=== PATIENT | male | born 1965 | race Caucasian/White ===

== ENCOUNTER 2017-06-26 23:50 | Observation (INO) | payer OTHER ==
[2017-06-27] MEDS: KETOROLAC 30 MG/ML INJ. IV (00:07)
[2017-06-27] MEDS: ONDANSETRON PF 4 MG/2 ML VIAL. IV (00:09)
[2017-06-27] MEDS: IV NORMAL SALINE 1000ML BAG 1,000 ML IV ×3 (00:10→05:22)
[2017-06-27 00:39] LABS: ADD MAN DIFF? NO
[2017-06-27 00:44] LABS: BASO # 0.1 x10^3/uL (0.0-0.2); BASO % 1 % (0-3); EOS # 0.3 x10^3/uL (0.0-0.7); EOS % 3 % (0-3); HEMATOCRIT 48.7 % (39.0-53.0); LYMPH # 4.1 x10^3/uL (1.0-4.8); LYMPH % 38 % (24-48); MEAN CORPUSCULAR HEMOGLOBIN 32 pg (25-35); MEAN CORPUSCULAR HGB CONC 35 g/dL (31-37); MEAN CORPUSCULAR VOLUME 90 fL (79-100); MONO # 0.8 x10^3/uL (0.0-1.1); MONO % 7 % (0-9); NEUT # 5.6 x10^3uL (1.8-7.7); NEUT % 52 % (31-73); PLATELET COUNT 198 x10^3/uL (140-400); RED CELL DISTRIBUTION WIDTH 12.8 % (11.5-14.5); WHITE BLOOD COUNT 10.8 x10^3/uL (4.0-11.0)
[2017-06-27 00:54] LABS: ANION GAP 9 (6-14); BLOOD UREA NITROGEN 18 mg/dL (8-26); BUN/CREATININE RATIO 13 (6-20); CALCIUM 9.1 mg/dL (8.5-10.1); CARBON DIOXIDE 30 mmol/L (21-32); CHLORIDE 102 mmol/L (98-107); CREATININE 1.4 mg/dL (0.7-1.3); GFR 53.6; GLUCOSE 128 mg/dL (70-99); POTASSIUM 3.8 mmol/L (3.5-5.1); SODIUM 141 mmol/L (136-145)
[2017-06-27 01:00] LABS: ALBUMIN 4.4 g/dL (3.4-5.0); ALBUMIN/GLOBULIN RATIO 1.2 (1.0-1.7); ALK PHOS 60 U/L (46-116); ALT (SGPT) 42 U/L (16-63); LIPASE 137 U/L (73-393); TOTAL BILIRUBIN 1.5 mg/dL (0.2-1.0); TOTAL PROTEIN 8.1 g/dL (6.4-8.2)
[2017-06-27] MEDS: MORPHINE SULFATE 4 MG/ML DISP.SYRIN. IV (01:12)
[2017-06-27 01:26] LABS: AST (SGOT) 29 U/L (15-37)
[2017-06-27] MEDS ORDERED: ONDANSETRON PF 4 MG/2 ML VIAL. IV ×2 (03:30→08:15)
[2017-06-27] MEDS ORDERED: ACETAMINOPHEN 325 MG TABLET. PO (03:30)
[2017-06-27 03:50] LABS: BILIRUBIN,URINE NEGATIVE (NEG); CLARITY,URINE CLEAR; COLOR,URINE YELLOW; GLUCOSE,URINE NEGATIVE (NEG); NITRITE,URINE NEGATIVE (NEG); PH,URINE 6.5; PROTEIN,URINE NEGATIVE (NEG-TRACE); UROBILINOGEN,URINE 0.2 mg/dL (0.2 mg/dL)
[2017-06-27] MEDS: fentaNYL PF VIAL 100 MCG/2 ML VIAL IV ×3 (03:53→06:07)
[2017-06-27 04:02] LABS: BACTERIA,URINE 0 /HPF (0-FEW); WBC,URINE 0 /HPF (0-4)
[2017-06-27] MEDS ORDERED: IV NORMAL SALINE 1000ML BAG 1,000 ML IV (08:15)
[2017-06-27] MEDS ORDERED: fentaNYL PF VIAL 100 MCG/2 ML VIAL IV (08:15)
[2017-06-27] MEDS: SCOPOLAMINE 1.5MG PATCH. TD (09:00)
[2017-06-27] MEDS: PANTOPRAZOLE IV PUSH 40 MG VIAL. IVP (09:00)
[2017-06-27] MEDS ORDERED: NAPROXEN 250 MG TABLET PO (11:00)
[2017-06-27] MEDS ORDERED: ENOXAPARIN 40 MG/0.4 ML SYRINGE. SQ (21:00)
[2017-06-27] MEDS ORDERED: TAMSULOSIN 0.4 MG CAP.ER.24H. PO (21:00)
== END 2017-06-27 12:00 | disposition home or self-care (01) ==
LOC: ER 23:50 → 4 NORTH 06-27 03:00
DX: N13.2 Hydronephrosis with renal and ureteral calculous obstruction (principal); R10.9 Unspecified abdominal pain
CPT/HCPCS: 36415; 74018; 74176; 80053; 81001; 83690; 85025; 93005; 96361; 96374; 96375; 96376; 99285-25; G0378; G0379; J1885; J2270; J2405; J3010; J7030

== ENCOUNTER 2020-11-20 08:06 | Emergency (ER) | payer OTHER ==
[~2020-11-20] VITALS: Ht 185.4 cm; Wt 127.2 kg
[~2020-11-20 08:06] MED LIST: NAPR-699 PO; TRAM50TA PO
--- NOTE | 2020-11-20 08:30 | PHYS DOC ---
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 Is right-hand dominant. Denies any prior injury to this arm. Is not on any anticoagulants. States forearm is swollen with no significant discomfort to the swollen area. Pt states "It does not hurt that bad. I'll be really upset if it is broken." Review of Systems: Review of Systems: Constitutional: Denies fever or chills. [] Eyes: Denies change in visual acuity. [] HENT: Denies nasal congestion or sore throat. [] Respiratory: Denies cough or shortness of breath. [] Cardiovascular: Denies chest pain or edema. [] GI: Denies nausea or vomiting Musculoskeletal: Denies back pain or joint deformity/warmth Integument: Denies rash or diaphoresis Neurologic: Denies focal weakness or sensory changes. [] Psychiatric: Denies depression or anxiety. [] Heart Score: C/O Chest Pain: No Risk Factors: Risk Factors: DM, Current or recent (<one month) smoker, HTN, HLP, family history of CAD, obesity. 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 Neck: Normal range of motion, supple, Cardiovascular: S1/2 present, regular rhythm Lungs & Thorax: Speaking in full sentences, bilateral equal chest rise, no tachypnea or increased work of breathing Skin: Warm, dry, no erythema, no rash. [] Extremities: No tenderness, no cyanosis, no pain over right shoulder/wrist/hand- no TTP over right olecranon or both epicondyles, 6 x 8 cm region of swelling over right lateral proximal forearm with no underlying radial or ulnar discomfort, equal radial pulses, full range of motion of right upper extremity, median/radial/ulnar nerve distribution intact, axillary nerve sensation intact Neurologic: Alert and oriented X 3, normal motor function, normal sensory function, no focal deficits noted. [] Psychologic: Affect normal, judgement normal, mood normal. [] Current Patient Data: Vital Signs: Vital Signs Date Time Temp Pulse Resp B/P (MAP) Pulse Ox O2 Delivery O2 Flow Rate FiO2 11/20/20 08:12 98.6 91 16 163/99 (120) 98 Room Air 98.6 EKG: EKG: [] Radiology/Procedures: Radiology/Procedures: IMAGING REPORT Signed PATIENT: SELVIN ANDERSON ACCOUNT: [id number] : 1965 LOCATION: ER AGE: 55 SEX: M EXAM STATUS: REG ER ORD. PHYSICIAN: RICO ARANDA DO REASON: prox swelling/pain, hit on door PROCEDURE: FOREARM RIGHT History: Swelling and pain. AP, oblique and lateral views of the right elbow were obtained along with AP and lateral views of the right forearm. . Comparison: none. There is no fracture, dislocation, or joint effusion seen. No significant degenerative changes. Impression: 1. Negative exam of the right forearm and elbow. Electronically signed by: Selvin Garcia MD (11/20/2020 8:51 AM) [id number] DICTATED and SIGNED BY: SELVIN GARCIA MD DATE: 11/20/20 [id number] 0 Course & Med Decision Making: Course & Med Decision Making Pertinent Labs and Imaging studies reviewed. (See chart for details) Concern for right forearm proximal contusion after blunt injury with no fracture on x-ray, cannot exclude occult fracture. Will discharge home with strict ED return precautions were given for repeat injury, severe pain, decreased range of motion or neurologic deficits. Encouraged urgent outpatient follow-up with PMD and orthopedic surgery for definitive management if pain should persist-may need repeat imaging. Life-threatening processes were considered but are low suspicion at this time, given history, physical exam and ED workup. Pt was educated on all prescription medications and adverse effects. All patient's questions were answered and pt was stable at time of discharge. Life/limb-threatening differential includes but is not limited to, trauma (fracture, dislocation, laceration, compartment syndrome, tendon or ligament injury), neurovascular injury or deficitcva/tia, infection (osteomyelitis, abscess, cellulitis, septic arthritis, necrotizing fasciitis), deep vein thrombosis, renal/cardiac/liver disease, medication adverse effect, lymphedema/anasarca, vascular insufficiency or malignancy, I have spoken with the patient and/or caregivers. I explained the patient's condition, diagnoses and treatment plan based on the information available to me at this time. I have answered the patient and/or caregiver's questions and addressed any concerns. The patient and/or caregivers have a good understanding of patient's diagnosis, condition and treatment plan as can be expected at this point. Vital signs have been stable. Patient's condition is stable and appropriate for discharge from the emergency department. Patient will pursue further outpatient evaluation with primary care physician or other designated or consulting physician as outlined in the discharge instruc tions. The patient and/or caregivers are agreeable to this plan of care and follow-up instructions have been explained in detail. The patient and/or caregivers have received these instructions in written form and have expressed an understanding of the discharge instructions. The patient and/or caregivers are aware that any significant change of condition or worsening of symptoms should prompt immediate return to this or the closest emergency department or call to 911. Terri Disclaimer: Terri Disclaimer: This electronic medical record was generated, in whole or in part, using a voice recognition dictation system. Departure Departure Impression: Primary Impression: Contusion of right forearm Disposition: HOME / SELF CARE / HOMELESS Condition: STABLE Referrals: MELINDA GUZMAN MD (PCP) Follow-up with your primary care physician in 24 to 48 hours OR FOLLOW UP WITH FAMILY MEDICINE: [id number] [facility] [place] [address] Patient Instructions: Contusion, RICE - Routine Care for Injuries Additional Instructions: FOLLOW UP WITH ORTHOPEDICS: FOR DEFINITIVE MANAGEMENT Orthopaedic Surgery [address] [facility] [place] [address] EMERGENCY DEPARTMENT GENERAL DISCHARGE INSTRUCTIONS Thank you for coming to [facility] Emergency Department (ED) today and trusting us with you care. We trust that you had a positive experience in our Emergency Department. If you wish to speak to the department management, you may call the Director at [phone]. YOUR FOLLOW UP INSTRUCTIONS ARE FOLLOWS: 1. Do you have a private Doctor? If you do not have a private doctor, please ask for a resource list of physicians or clinics that may be able to assist you with follow up care. 2. The Emergency Physicain has interpreted your x-rays. The X-Ray specialist will also review them. If there is a change in the findings, you will be notified in 48 hours when at all possible. 3. A lab test or culture has been done, your results will be reviewed and you will be notified if you need a change in treatment. ADDITIONAL INSTRUCTIONS AND INFORMATION: 1. Your care today has been supervised by a physician who is specially trained in emergency care. Many problems require more than one evaluation for a complete diagnosis and treatment. We recommend that you schedule your follow up appointment as recommended to ensure complete treatment of you illness or injury. If you are unable to obtain follow up care and continue to have a problem, or if your condition worsens, we recommend that you return to the ED. 2. We are not able to safely determine your condition over the phone nor are we able to give sound medical advice over the phone. For these safety reasons, if you call for medical advice we will ask you to come to the ED for further evaluation. 3. If you have any questions regarding these discharge instructions please call the ED at [phone]. SAFETY INFORMATION: In the interest of safety, wellness, and injury prevention; we encourage you to wear your sealbelt, if you smoke; quite smoking, and we encourage family to use a protective helmet for bicycling and other sporting events that present an increased risk for head injury. IF YOUR SYMPTOMS WORSEN OR NEW SYMPTOMS DEVELOP, OR YOU HAVE CONCERNS ABOUT YOUR CONDITION; OR IF YOUR CONDITION WORSENS WHILE YOU ARE WAITING FOR YOUR FOLLOW UP APPOINTMENT; EITHER CONTACT YOUR PRIMARY CARE DOCTOR, THE PHYSICIAN WHOSE NAME AND NUMBER YOU WERE GIVEN, OR RETURN TO THE ED IMMEDIATELY. RICO ARANDA DO Nov 20, 2020 08:30
--- NOTE | 2020-11-20 08:54 | RAD ---
History: Swelling and pain. AP, oblique and lateral views of the right elbow were obtained along with AP and lateral views of the right forearm. . Comparison: none. There is no fracture, dislocation, or joint effusion seen. No significant degenerative changes. Impression: 1. Negative exam of the right forearm and elbow. Electronically signed by: Selvin Garcia MD (11/20/2020 8:51 AM) [id number]
[2020-11-20 09:35] VITALS: BP 169/88
== END 2020-11-20 09:38 | disposition home or self-care (01) ==
LOC: ER 08:06
DX: S50.11XA Contusion of right forearm, initial encounter (principal); E03.9 Hypothyroidism, unspecified; W22.8XXA Striking against or struck by other objects, initial encounter; Y93.89 Activity, other specified; Y92.89 Other specified places as the place of occurrence of the external cause; Y99.8 Other external cause status
CPT/HCPCS: 73080; 73090; 99284